=== PATIENT | female | born 1990 | race Caucasian/White ===

== ENCOUNTER 2018-01-15 19:16 | Emergency (ER) | payer BC ==
--- NOTE | 2018-01-15 21:16 | UC ---
Throat Pain/Nasal Madi HPI - HPI Summary HPI Summary: Per nc machinist "States sore throat beginning yesterday, noticed "white patches" today. " Here with her BF Julian. Denies . LMP 2 wks ago. -states she has swelling in her neck. no known h/o mono. no fevers. no drooling. her Dad is a retired MEDICAL RESEARCH TECH and questioned thrush. no sx on tongue. no abd pain. -she adds that she self d/c'd simvastatin recently - followed by her PCP. - History of Current Complaint Chief Complaint: UCRespiratory Stated Complaint: SORE THROAT Time Seen by Provider: 01/15/18 20:45 Hx Last Menstrual Period: 12/31/17 Pain Intensity: 8 - Allergies/Home Medications Allergies/Adverse Reactions: Allergies Allergy/AdvReac Type Severity Reaction Status Date / Time Latex, Natural Rubber Allergy Rash Verified 01/15/18 19:56 shellfish derived Allergy Anaphylatic Verified 01/15/18 19:56 Shock silver Allergy Rash Verified 01/15/18 19:56 Home Medications: Home Medications Norgestimate-Ethinyl Estradiol [Ortho Tri-Cyclen Lo Tablet] 1 each PO DAILY [History Confirmed 01/15/18] Pseudoephedrine HCL ER TAB* [Sudafed 12 Hour*] 120 mg PO BID 01/15/18 [History Confirmed 01/15/18] PMH/Surg Hx/FS Hx/Imm Hx Previously Healthy: Yes Endocrine History: Dyslipidemia - Surgical History Surgical History: Yes Surgery Procedure, Year, and Place: left ear melanoma removed 2017. right ankle ligament reconstruction. wisdom teeth extraction - Family History Known Family History: Positive: Hypertension - Social History Alcohol Use: Occasionally Substance Use Type: None Smoking Status (MU): Never Smoked Tobacco Review of Systems Constitutional: Fatigue Skin: Negative Eyes: Negative ENT: Sore Throat Respiratory: Negative Cardiovascular: Negative Gastrointestinal: Negative Genitourinary: Negative Motor: Negative Neurovascular: Negative Musculoskeletal: Negative Neurological: Negative Psychological: Negative Is Patient Immunocompromised?: No All Other Systems Reviewed And Are Negative: Yes Physical Exam Triage Information Reviewed: Yes Appearance: Well-Appearing, No Pain Distress, Well-Nourished Vital Signs: Initial Vital Signs Temp 97.4 F 01/15/18 19:55 Pulse 98 01/15/18 19:55 Resp 16 01/15/18 19:55 BP 126/79 01/15/18 19:55 Pulse Ox 98 01/15/18 19:55 Vital Signs Reviewed: Yes Eye Exam: Normal ENT: Positive: Pharyngeal erythema, TMs normal, Tonsillar exudate - mild left, airway patent, uvula midline. no abscess. voice is nml. no drooling. Dental Exam: Normal Neck: Positive: Supple, Nontender, No Lymphadenopathy - anterior or posterior, Other: - + diffuse thyroid goiter. Negative: Nuchal Rigidity Respiratory Exam: Normal Respiratory: Positive: Lungs clear, Normal breath sounds, No respiratory distress, No accessory muscle use. Negative: Crackles, Rhonchi, Stridor, Wheezing Cardiovascular Exam: Normal Cardiovascular: Positive: RRR, No Murmur Abdomen Description: Positive: Nontender, No Organomegaly, Soft. Negative: CVA Tenderness (R), CVA Tenderness (L), Hepatomegaly, Splenomegaly Bowel Sounds: Positive: Present Musculoskeletal Exam: Normal Neurological Exam: Normal Psychological Exam: Normal Skin Exam: Normal Throat Pain/Nasal Course/Dx - Course Course Of Treatment: rapid strep neg. + thyroid goiter diffuse on exam. adv to f/u with pcp and recommend thyorid US. -can disuss simvastatin management w/ her PCP further for recommendations. -mono EBV if neg, cbc w/ diff. call in 2- 3 days for results - Differential Dx/Diagnosis Differential Diagnosis/HQI/PQRI: Mononucleosis, Peritonsillar Abscess, Pharyngitis, Tonsillitis, URI Provider Diagnoses: pharyngitis, goiter Discharge - Sign-Out/Discharge Documenting (check all that apply): Post-Discharge Follow Up - Discharge Plan Condition: Stable Disposition: HOME Referrals: Mari Charles NP [Primary Care Provider] - Additional Instructions: -Call in 2-3 days for the mono results -You should follow up with your PCP for possible thyroid goiter. I recommend that you have a thyroid ultrasound done. -rapid strep test is negative. - Billing Disposition and Condition Condition: STABLE Disposition: HOME
[2018-01-16 13:56] LABS: ABS Basophils 0 10^3/ul (0-0.2); ABS Eosinophils 0.1 10^3/ul (0-0.6); ABS Lymphocytes 2.8 10^3/ul (1.0-4.8); ABS Monocytes 0.7 10^3/ul (0-0.8); ABS Neutrophils 12.2 10^3/ul (1.5-7.7); ABS Nucleated RBC 0 10^3/ul; Eosinophil % 0.9 % (0-6); Hematocrit 42 % (35-47); Hemoglobin 14.1 g/dl (12.0-16.0); Lymphocyte % 17.4 % (25-47); Mean Corpuscular HGB Conc 34 g/dl (31-36); Mean Corpuscular Hemoglobin 31 pg (27-31); Mean Corpuscular Volume 92 fL (80-97); Mean Platelet Volume 8.5 um3 (7.4-10.4); Nucleated Red Blood Cells % 0.2; Platelet Count 303 10^3/ul (150-450); Red Blood Count 4.54 10^6/ul (4.0-5.4); Red Cell Distribution Width 13 % (10.5-15); White Blood Count 15.9 10^3/ul (3.5-10.8)
== END 2018-01-15 21:37 | disposition home or self-care (01) ==
LOC: UCCORT 19:16
DX: J02.9 Acute pharyngitis, unspecified (principal); E04.9 Nontoxic goiter, unspecified
CPT/HCPCS: 36415; 85025; 86308; 86664; 86665; 87651; 99201; G0463

== ENCOUNTER 2019-09-26 20:20 | Emergency (ER) | payer BC ==
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
[2019-09-26 20:35] VITALS: BP 132/90
--- NOTE | 2019-09-26 20:54 | UC ---
Complaint Female HPI - HPI Summary HPI Summary: 29-year-old female presents with complaints of urinary frequency and lower abdominal discomfort for the past 2 days. States yesterday had some lower back pain that has since subsided. States she is concerned because her period is late. She did perform a home test which was negative. States she is in a monogamous relationship with a single male partner and has no concerns for STI's. Last menstrual period was 08/27/2019. Denies fever, chills, nausea, vomiting, dysuria, urgency, hematuria, vaginal discharge, vaginal itching, or dyspareunia. - History Of Current Complaint Chief Complaint: UCGU Stated Complaint: URINARY Time Seen by Provider: 09/26/19 20:30 Hx Obtained From: Patient Hx Last Menstrual Period: Aug 27 Pain Intensity: 3 - Allergies/Home Medications Allergies/Adverse Reactions: Allergies Allergy/AdvReac Type Severity Reaction Status Date / Time Latex, Natural Rubber Allergy Rash Verified 09/26/19 20:35 shellfish derived Allergy Anaphylatic Verified 09/26/19 20:35 Shock silver Allergy Rash Verified 09/26/19 20:35 Home Medications: Home Medications Fluticasone HFA 220 mcg(NF) [Flovent HFA 220 Mcg(NF)] 1 puff INH BID 09/26/19 [ History Confirmed 09/26/19] Norethindrone [Archana] 0.35 mg PO DAILY 09/26/19 [History Confirmed 09/26/19] PMH/Surg Hx/FS Hx/Imm Hx Previously Healthy: Yes - Denies significant PMH - Surgical History Surgical History: Yes Surgery Procedure, Year, and Place: left ear melanoma removed 2017. right ankle ligament reconstruction. wisdom teeth extraction - Family History Known Family History: Positive: Hypertension - Social History Occupation: Employed Full-time Lives: Alone Alcohol Use: Occasionally Substance Use Type: None Smoking Status (MU): Never Smoked Tobacco Review of Systems All Other Systems Reviewed And Are Negative: Yes Constitutional: Negative: Fever, Chills Genitourinary: Positive: Frequency. Negative: Dysuria, Hematuria, Urgency, Vaginal/Penile Itching, Vaginal/Penile Discharge, Ulceration/Lesion Musculoskeletal: Positive: Negative Neurological: Positive: Negative Psychological: Positive: Negative Is Patient Immunocompromised?: No Physical Exam - Summary Physical Exam Summary: GENERAL APPEARANCE: Well developed, well nourished, alert and cooperative, and appears to be in no acute distress. CARDIAC: Normal S1 and S2. No S3, S4 or murmurs. Rhythm is regular. There is no peripheral edema, cyanosis or pallor. Extremities are warm and well perfused. Capillary refill is less than 2 seconds. Peripheral pulses intact. LUNGS: Clear to auscultation without rales, rhonchi, wheezing or diminished breath sounds. ABDOMEN: Positive bowel sounds. Soft, nondistended. Mild suprapubic tenderness without guarding or rebound. No masses or hepatosplenomegally. No CVA tenderness. MUSKULOSKELETAL: ROM intact to all extremities. No joint erythema or tenderness. Normal muscular development. Normal gait. SKIN: Skin normal color, texture and turgor with no lesions or eruptions. Triage Information Reviewed: Yes Vital Signs: Initial Vital Signs Temp 97.0 F 09/26/19 20: Pulse 87 09/26/19 20:29 Resp 18 09/26/19 20:29 BP 132/90 09/26/19 20: Pulse Ox 99 09/26/19 20:29 Vital Signs Reviewed: Yes Complaint Female Dx - Course Course Of Treatment: 29-year-old female presents with complaints of urinary frequency and lower abdominal discomfort for the past 2 days. States yesterday had some lower back pain that has since subsided. States she is concerned because her period is late. She did perform a home test which was negative. States she is in a monogamous relationship with a single male partner and has no concerns for STI's. Last menstrual period was 08/27/2019. Denies fever, chills, nausea, vomiting, dysuria, urgency, hematuria, vaginal discharge, vaginal itching, or dyspareunia. Afebrile. Vital signs stable. Patient had a soft, nondistended abdomen with mild suprapubic tenderness without guarding or rebound, no CVA tenderness, and otherwise unremarkable exam. [id number] urinalysis showed 2 + blood. Urine was negative. Reviewed results with the patient. Discussed with the patient that with the negative I have a low suspicion for ectopic however I cannot fully rule out the possibility of a kidney stone or ovarian cyst as the source of her pain. We discussed possible treatment options including evaluation in the emergency room versus empiric treatment for UTI versus watchful waiting and the patient is electing for watchful waiting at this time. A urine culture was sent and is pending. She is to return here or follow up with her primary care provider in 3-5 days if symptoms are not improving. Anticipatory guidance and warning symptoms requiring immediate evaluation in the emergency room were reviewed with the patient. Verbalizes understanding and agrees with plan of care. - Differential Dx/Diagnosis Differential Diagnosis/HQI/PQRI: Ectopic, Ovarian Cyst, Pelvic Inflammatory Disease, , Renal Colic, Sexually Transmitted Disease, Urinary Tract Infection Provider Diagnosis: Urinary frequency, Hematuria Discharge ED - Sign-Out/Discharge Documenting (check all that apply): Patient Departure All imaging exams completed and their final reports reviewed: No Studies - Discharge Plan Condition: Stable Disposition: HOME Patient Education Materials: Urinary Urgency and Frequency (DC) Referrals: Mari Charles NP [Primary Care Provider] - Additional Instructions: The urine test performed in the clinic tonight showed some blood but no evidence of infection. The urine test was negative. As we discussed I cannot say for certain the cause of your symptoms and I cannot exclude the possibility of a kidney stone or ovarian cyst at this time as I do not have the appropriate radiology imaging available to me. We will send a urine culture to see if any bacteria grow out and if so we will start to on an appropriate antibiotic treatment for a urinary tract infection. Return here or follow-up with your primary care provider in 3-5 days if your symptoms are not improving. Seek immediate medical attention in the emergency room if you develop a fever greater than 100.5 F, have worsening of your abdominal pain, persistent vomiting , become dizzy or lightheaded, or have any worsening of symptoms. - Billing Disposition and Condition Condition: STABLE Disposition: Home
--- NOTE | 2019-09-29 07:05 | UC ---
- Progress Note Progress Note: urine final - no growth no change clau Course/Dx - Diagnoses Provider Diagnoses: Urinary frequency, Hematuria Discharge ED - Sign-Out/Discharge Documenting (check all that apply): Post-Discharge Follow Up All imaging exams completed and their final reports reviewed: No Studies - Discharge Plan Condition: Stable Disposition: HOME Patient Education Materials: Urinary Urgency and Frequency (DC) Referrals: Mari Charles NP [Primary Care Provider] - Additional Instructions: The urine test performed in the clinic [facility] showed some blood but no evidence of infection. The urine test was negative. As we discussed I cannot say for certain the cause of your symptoms and I cannot exclude the possibility of a kidney stone or ovarian cyst at this time as I do not have the appropriate radiology imaging available to me. We will send a urine culture to see if any bacteria grow out and if so we will start to on an appropriate antibiotic treatment for a urinary tract infection. Return here or follow-up with your primary care provider in 3-5 days if your symptoms are not improving. Seek immediate medical attention in the emergency room if you develop a fever greater than 100.5 F, have worsening of your abdominal pain, persistent vomiting , become dizzy or lightheaded, or have any worsening of symptoms. - Billing Disposition and Condition Condition: STABLE Disposition: Home
== END 2019-09-26 21:13 | disposition home or self-care (01) ==
LOC: UCCORT 20:20
DX: R35.0 Frequency of micturition (principal); R31.9 Hematuria, unspecified; M54.5 Low back pain; Z91.040 Latex allergy status; Z91.013 Allergy to seafood; Z91.09 Other allergy status, other than to drugs and biological substances
CPT/HCPCS: 81003; 84702; 87086; 99211; G0463